=== PATIENT | male | born 1955 | race Caucasian/White ===

== ENCOUNTER → 2020-12-01 | Outpatient (CLI) | payer BC ==
[2020-12-01 12:34] LABS: Basophils % (A) 1 %; Eosinophils # (A) 0.2 k/uL (0-0.7); Eosinophils % (A) 2 %; HGB 16.2 gm/dL (13.0-17.5); Lymphocytes # (A) 2.3 k/uL (1.0-4.8); Lymphocytes % (A) 29 %; MCH 30.3 pg (25.0-35.0); MCHC 33.8 g/dL (31.0-37.0); MCV 89.7 fL (80.0-100.0); Monocytes # (A) 0.6 k/uL (0-1.0); Monocytes % (A) 7 %; Neutrophils # (A) 4.7 k/uL (1.3-7.7); Neutrophils % (A) 59 %; Platelet Count 251 k/uL (150-450); RBC 5.35 m/uL (4.30-5.90); RDW 13.8 % (11.5-15.5); WBC 7.9 k/uL (3.8-10.6)
[2020-12-01 12:45] LABS: Potassium 4.5 mmol/L (3.5-5.1)
[2020-12-01 12:53] LABS: Prothrombin Time 10.4 sec (9.0-12.0)
== END | disposition home or self-care (01) ==
LOC: LABPAT 11:53
PROVIDERS: ATTEND Orthopaedic Surgery
DX: Z01.812 Encounter for preprocedural laboratory examination (principal); M16.11 Unilateral primary osteoarthritis, right hip; Z22.322 Carrier or suspected carrier of Methicillin resistant Staphylococcus aureus
CPT/HCPCS: 36415; 80051; 85025; 85610

== ENCOUNTER → 2020-12-10 | Outpatient (CLI) | payer BC | END | disposition home or self-care (01) | LOC: LABPAT 10:18 | PROVIDERS: ATTEND Orthopaedic Surgery | DX: Z01.812 Encounter for preprocedural laboratory examination (principal); M16.11 Unilateral primary osteoarthritis, right hip; Z22.322 Carrier or suspected carrier of Methicillin resistant Staphylococcus aureus | CPT/HCPCS: 87070 ==

== ENCOUNTER 2020-12-15 06:13 | Day surgery (SDC) | payer BC ==
[2020-12-09 11:58] VITALS: BMI 31.5
--- NOTE | 2020-12-14 11:56 | HP ---
HISTORY AND PHYSICAL CHIEF COMPLAINT: Right hip pain. 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 He is having a difficult time with normal walking. He has been limping. He has tried medications in addition to exercise and weight loss without much relief. PAST MEDICAL HISTORY: Negative. PAST SURGICAL HISTORY: Negative. CURRENT MEDICATIONS: None. He denies drug allergies. FAMILY HISTORY: Significant for cancer and heart disease. SOCIAL HISTORY: Significant for social alcohol use. REVIEW OF SYSTEMS: Sixteen-point review of systems otherwise reviewed and noncontributory. PHYSICAL EXAMINATION: On examination, the patient is approximately 5 foot 10, 230 pounds of endomorphic habitus. HEENT exam is nonfocal. Neck is supple. Passive motion right hip, flexion 80 degrees, external rotation, hip flexed 50 degrees, internal rotation -20 degrees with pain. Clinically, he has 1.5 cm shortening of the right lower extremity compared to the left. His distal neurovascular exam appears intact in the right lower extremity. X-rays of the right hip obtained in the office show severe right hip osteoarthrosis with [id number] changes and lateral subluxation. IMPRESSION: Right hip severe osteoarthrosis. RECOMMENDATIONS: I talked to the patient at length regarding his condition along with treatment options. At this point, he is quite limited because of pain related to his right hip osteoarthrosis despite previous conservative measures. After thorough discussion, he opts to proceed with surgery. We will plan to proceed with right total hip arthroplasty utilizing an anterior approach. Risks and benefits were discussed at length in layman's terms. We will institute DVT prophylaxis postoperatively. MMODL / IJN: [id number] /
[~2020-12-15 06:13] MED LIST: ACETAMINOPHEN TAB 500 MG TAB PO PRN; DEXAMETHASONE SOD PHOSPHATE 4 MG/ML 1 ML VIAL IV ONE; LACTATED RINGERS 1,000 ML IV SCH; MELOXICAM 7.5 MG TAB PO PRN; MIDAZOLAM 2 MG/2 ML VIAL IV PRN; ONDANSETRON 4 MG/2 ML VIAL IVP ONE; TRANEXAMIC ACID 1,000 MG in SODIUM CHLORIDE 0.9% 100 ML IVPB PRN
[2020-12-15] MEDS ORDERED: MIDAZOLAM 2 MG/2 ML VIAL ONE (07:33)
[2020-12-15] MEDS ORDERED: SODIUM CHLORIDE 0.9% 100 ML BAG ONE (07:33)
[2020-12-15] MEDS ORDERED: KETAMINE 10 MG/ML 20 ML VIAL ONE (07:33)
[2020-12-15] MEDS ORDERED: TRANEXAMIC ACID 1,000 MG/10 ML VIAL ONE (07:33)
[2020-12-15] MEDS ORDERED: fentaNYL (PF) 50 MCG/ML 2 ML AMP ONE (07:33)
[2020-12-15] MEDS ORDERED: PROPOFOL 10 MG/ML 20 ML VIAL IV ONE (07:33)
[2020-12-15] MEDS ORDERED: ceFAZolin 1,000 MG in SODIUM CHLORIDE 0.9% 1,000 ML IRRIGATION ONE (08:13)
[2020-12-15] MEDS ORDERED: HYDROcodone/APAP 7.5-325MG 1 EACH TAB PO PRN (09:26)
[2020-12-15] MEDS ORDERED: HYDROcodone/APAP 5-325MG 1 EACH TAB PO PRN (09:26)
[2020-12-15] MEDS ORDERED: NALOXONE 0.4 MG/ML 1 ML VIAL IV PRN (09:26)
--- NOTE | 2020-12-15 09:45 | P.OP ---
Date of Procedure: 12/15/20 Preoperative Diagnosis: Right hip severe osteoarthrosis Postoperative Diagnosis: Same Procedure(s) Performed: Right total hip arthroplastypress-fitanterior approach Implants: Depuy Corail size 12 standard collared press-fit femoral stem, 36+1.5 cobalt chrome femoral head, 56 mm Thornton acetabular shell with neutral polyethylene liner. Anesthesia: spinal Surgeon: Eitan Escamilla Auctioneer Art #1: Tirso Reyes Estimated Blood Loss (ml): 500 Pathology: other (Femoral head) Condition: stable Disposition: PACU Indications for Procedure: The patient's 65-year-old male presents with progressive right hip pain secondary to osteoporosis despite previous conservative measures. A discussion of the risks and benefits of operative intervention was made with patient. He opted to proceed with surgery. Operative risks to include infection, neurovascular injury, development blood clots, fracture, possible leg length is Significant, possible instability need for subsequent procedures was discussed. Informed consent was obtained. Operative Findings: As below Description of Procedure: The patient was brought to the operating room, and after induction of spinal anesthesia was placed supine on the Lisa table. Positioning was checked with fluoroscopy. The right hip was then prepped and draped in a normal fashion. A 12 cm incision was then made starting 2 fingerbreadths distal and 3 finger breaths posterior to the ASIS in line with the proximal femur. The skin was incised sharply. Subcutaneous tissues were divided sharply. Electrocautery was used for hemostasis. The fascia was split in line with skin incision. The interval between the sartorius and tensor fascia bang was then bluntly developed. The posterior fascia was opened with electrocautery. The lateral circumflex vessels were identified and cauterized prior to sectioning. A retractor was placed along the superior femoral neck as well as the anterior acetabular rim. A wide capsulotomy was performed. The neck cut was then made at a 45 angle to the shaft approximately 1 1/2 cm above the level of the lesser trochanter. The head was extracted. Attention was then paid towards preparing the acetabular. Anterior and posterior retractors were placed. The remaining capsular labral tissue sharply debrided clearly defining the acetabular margins. I began reaming with a 51 mm reamer taking care to initially medialize then reaming at 45 of abduction and 20 of anteversion. Sequential reaming is performed up to 55 mm. A trial 56 mm acetabular shell was inserted in the same orientation and was fully seated. There was good rim fit and stability. Positioning was checked with fluoroscopy. The final 56 mm acetabular shell was inserted again at 45 of abduction and 20 of antever sahil. This was fully seated. There was good rim fit and stability. Again fluoroscopy was used to check the adequacy of placement. A neutral polyethylene liner was gently impacted. Care was taken to avoid any soft tissue interposition. Pulsatile lavage was utilized. Attention was then paid towards preparing the proximal femur. The central region was cleared of soft tissue. A canal finder was used to find the femoral canal. Sequential broaching was performed up to size 12 taking care to lateralize proximally. A calcar mill was used to fashion the medial calcar. There was good rotational stability. A standard neck along with a 36+1 mm head was placed. The hip was gently reduced. Fluoroscopy was used to check the adequacy of positioning along with leg lengths. I felt both were good. The hip was gently dislocated. The trial components were removed. The final size 12 collared standard press-fit femoral stem was inserted parallel to the posterior cortex. This was fully seated and there was good rotational stability. A 36 mm +1 head was placed. This was gently impacted. The hip was then gently reduced. Final fluoroscopic view showed adequate placement implant along with religion of leg length. Stability was checked with 80 of external rotation and 60 of extension of the right hip. The wound was irrigated with sterile lavage. The fascia was closed with running 0 Vicryl suture. There was minimal drainage therefore a deep drain was not placed. The second dose of IV TXA was given. The subcutaneous tissues were reapproximated interrupted 2-0 Vicryl sutures. The skin was reapproximated with 3-0 subcuticular strata fix suture. Skin tape and adhesive was applied. A sterile dressing was applied. The patient was then awoken from sedation and transferred to recovery room in good condition. Blood loss was estimated at 500 mL. No complications were incurred. Sponge and needle counts were correct at the end of the case. Tirso ABEBE assisted during the major components is case to include exposure, bone resection, implantation, and closure.
--- NOTE | 2020-12-15 09:47 | FL ---
Fluoroscopy INDICATION: Pain FINDINGS: Fluoroscopy time: 1 minute 13 seconds. Images obtained: 2. IMPRESSIONS: 1. Documentation of fluoroscopy.
[2020-12-15] MEDS: HYDROmorphone 0.5 MG/0.5 ML SYRINGE IVP PRN ×3 (10:49→12:43)
--- NOTE | 2020-12-15 11:20 | XR ---
EXAMINATION TYPE: XR Hip Limited RT DATE OF EXAM: 12/15/2020 COMPARISON: None HISTORY: Post hip replacement TECHNIQUE: AP right hip FINDINGS: There is a prosthesis present. Acetabular component is present. No acute fractures are evid ent. Postsurgical soft tissue changes are noted IMPRESSION: 1. No acute fracture post right hip replacement
[2020-12-15] MEDS ORDERED: SENNOSIDES-DOCUSATE SODIUM 1 EACH TAB PO SCH (21:00)
[2020-12-16 04:40] VITALS: BP 120/66; PULSE 83; RESP 17; TEMP 98.3
[2020-12-16] MEDS ORDERED: ENOXAPARIN 40 MG/0.4 ML SYRINGE SQ SCH (09:00)
[2020-12-16 09:09] LABS: Basophils # (A) 0.03 X 10*3/uL (0.00-0.10); Basophils % (A) 0.2 %; Eosinophils # (A) 0.09 X 10*3/uL (0.04-0.35); Eosinophils % (A) 0.7 %; HCT 41.1 % (39.6-50.0); HGB 13.3 g/dL (13.0-17.0); Lymphocytes # (A) 2.45 X 10*3/uL (0.90-5.00); Lymphocytes % (A) 19.5 %; MCH 28.2 pg (27.0-32.0); MCHC 32.4 g/dL (32.0-37.0); MCV 87.1 fL (80.0-97.0); Mean Platelet Volume 9.8 fL (9.5-12.2); Monocytes # (A) 1.45 X 10*3/uL (0.20-1.00); Monocytes % (A) 11.5 %; Neutrophils # (A) 8.52 X 10*3/uL (1.80-7.70); Neutrophils % (A) 67.8 %; Platelet Count 227 X 10*3/uL (140-440); RBC 4.72 X 10*6/uL (4.40-5.60); RDW 13.3 % (11.5-14.5); WBC 12.58 X 10*3/uL (4.50-10.00)
--- NOTE | 2020-12-16 10:04 | P.DS ---
Providers Date of admission: 12/15/2020 Expected date of discharge: 12/16/20 Attending physician: Eitan Escamilla Consults: 12/15/20 09:26 Consult Physician Routine Consulting Provider: Arslan Levy Consult Reason/Comments: s/p right total knee arthroplasty Do you want consulting provider notified?: Yes Primary care physician: Arslan Levy Hospital Course: Date of admission: 12/15/2020 Date of discharge: 12/16/2020 Admission diagnosis: Right hip osteoarthritis Discharge diagnosis: Same Attending physician: Dr. Escamilla Surgical procedures: Right total hip arthroplasty Brief history: Patient is a 65-year-old male with a history of progressive primary right hip osteoarthritis. At this point patient has failed conservative treatment measures and has opted to proceed with a elective right total hip arthroplasty. Hospital course: Details of patient's surgery can be found in operative report. Patient tolerated the procedure well and was subsequently transported to orthopedic floor. Patient's orthopeidc and medical care was provided daily. Patient had daily laboratory tests performed for evaluation of overall blood counts. Patient had daily physical therapy to include strengthening range of motion as well as education with walker ambulation. Patient was treated with Lovenox for their postoperative DVT prophylaxis during their inpatient stay. Patient was noted to have a relatively uneventful postoperative course. Patient reported satisfactory pain control with oral pain medications by postoperative day 1. Patient showed satisfactory progress with physical therapy. Patient moved steadily through the program and had no difficulty meeting the goals by postoperative day 1. Given patient's otherwise satisfactory course and having met physical therapy goals, plan is to discharge patient home on postoperative day 1. Discharge condition/disposition: Patient will be discharged home in stable condition. Discharge medications: Instructions are given on resumption of patient's normal daily medications per primary care recommendation, in addition patient will be prescribed [place] 7.5 mg/325 mg; Eliquis 2.5 mg BID x 2 weeks; Colace. Discharge instructions: 1. Wound care and infection precautions, keep incision dry and covered while showering, no lotions, creams, moisturizers. No soaking, tubs, pools, hottubs. Do not scrub over the incision. 2. Weight-bear as tolerated with walker / cane until follow-up. 3. Ice and elevate when necessary. Do not exceed 20 minutes per hour with ice pack. 4. Utilize compression sleeve until seen at first follow up appointment. 5. Visiting nursing care. 6. Home physical therapy. 7. Pain meds and anticoagulants per prescription. 8. Pain medication has potential to cause constipation. Increase oral fluid and fiber intake. Contact primary care provider if you have not had a bowel movement within 48 hours after discharge 9. No anti-inflammatory medication until discussed at first post operative visit, this including Motrin, Aleve, Mobic, Diclofenac. 10. Follow up in office at 2 weeks postop with Jay Velarde PA-C / Tirso Reyes PA-C 11. Follow up with your primary care doctor 7-10 days after discharge. 12. Contact [facility] with any questions, . Assessment: Right hip osteoarthritis Procedures: Right total hip arthroplasty Patient Condition at Discharge: Good Plan - Discharge Summary Discharge Rx Participant: Yes New Discharge Prescriptions: New Docusate [Colace] 100 mg PO DAILY #30 cap Apixaban [Eliquis] 2.5 mg PO BID #60 tab HYDROcodone/APAP 7.5-325MG [[place] 7.5] 1 each PO Q6HR PRN #24 tab PRN Reason: Pain No Action Tafluprost/Pf [Zioptan 0.0015% Eye Drops] 1 drop BOTH EYES HS Timolol 0.5% Ophth Soln (Pf) [Timoptic 0.5% Ocudose] 1 drops BOTH EYES DAILY Discharge Medication List Tafluprost/Pf [Zioptan 0.0015% Eye Drops] 1 drop BOTH EYES HS 12/09/20 [History] Timolol 0.5% Ophth Soln (Pf) [Timoptic 0.5% Ocudose] 1 drops BOTH EYES DAILY 12/09/20 [History] Apixaban [Eliquis] 2.5 mg PO BID #60 tab 12/16/20 [Rx] Docusate [Colace] 100 mg PO DAILY #30 cap 12/16/20 [Rx] HYDROcodone/APAP 7.5-325MG [[place] 7.5] 1 each PO Q6HR PRN #24 tab 12/16/20 [Rx] Follow up Appointment(s)/Referral(s): Tirso Reyes, CLAY [PHYSICIAN WIRE WEAVER] - 2 Weeks Activity/Diet/Wound Care/Special Instructions: Orthopedic Discharge Instructions: 1. Wound care and infection precautions, keep incision dry and covered while showering, no lotions, creams, moisturizers. No soaking, pools, hot tubs. Do not scrub over incision. 2. Weight-bear as tolerated with walker / cane until follow-up. 3. Ice and elevate when necessary. Do not exceed 20 minutes per hour with ice pack. 4. Utilize compression sleeve until seen at first follow up appointment. 5. Pain meds and anticoagulants per prescription. 6. Pain medication has potential to cause constipation. Increase oral fluid and fiber intake. Contact primary care provider if you have not had a bowel movement within 48 hours after discharge. 7. No anti-inflammatory medication until discussed at first post operative visit, this including Motrin, Aleve, Mobic, Diclofenac. 8. Follow up in office at 2 weeks postop with Jay Velarde PA-C / Tirso Reyes PA-C 9. Follow up with your primary care doctor 7-10 days after discharge. 10. Contact [facility] with any questions, . Keep mesh tape on for first 5 days. While showering with mesh tape, cover mesh tape with Saran wrap. Mesh tape knee removed in 5 days Discharge Disposition: HOME WITH HOME HEALTH SERVICES
--- NOTE | 2020-12-16 10:08 | P.PN ---
Subjective Progress Note Date: 12/16/20 Principal diagnosis: Right hip osteoarthritis Patient seen at bedside this morning. Patient was sitting in recliner chair with legs elevated. Patient says he is feeling well this morning in minimal pain. Patient says he did work with physical therapy this morning which went we ll. Patient says he is ready to go home. Patient denies chest pain, fever, shortness breath, nausea, vomiting, change in vision, loss of bowel/bladder control. Objective - Vital Signs Vital signs: Vital Signs Temp 98.3 F 12/16/20 02:00 Pulse 83 12/16/20 07:10 Resp 17 12/16/20 07:10 BP 120/66 12/16/20 02:00 Pulse Ox 95 12/16/20 02:00 Intake & Output 12/15/20 12/16/20 12/16/20 18:59 06:59 18:59 Intake Total 1141 300 300 Output Total 500 1600 Balance 641 -1300 300 Weight 104.1 kg Intake: IV 601 Oral 540 300 300 Output: Urine 1600 Estimated Blood Loss 500 Other: # Voids 1 2 - Exam Right hip: Incision is clean, dry, and intact. The exofin fusion tape is in good condition. There is minimal soft tissue swelling and ecchymosis surrounding the medial and lateral aspects of the incision. Calf is soft, no tenderness with palpation. Plantar flexion, dorsiflexion, EHL, FHL are intact. Sensory exam to light touch throughout the extremity is intact, dorsal pedis pulses 2+. - Labs CBC & Chem 7: 12/16/20 06:12 Labs: Abnormal Lab Results - Last 24 Hours (Table) 12/16/20 Range/Units 06:12 WBC 12.58 H (4.50-10.00) X 10*3/uL Neutrophils # 8.52 H (1.80-7.70) X 10*3/uL Monocytes # 1.45 H (0.20-1.00) X 10*3/uL Assessment and Plan Assessment: Right hip osteoarthritis Plan: 1. Right hip osteoarthritis - right total hip arthroplasty performed yesterday, 12/15/2020. Patient stable this morning plan for discharge home today 2. Appreciate medical management 3. Pain management - stable at this time. Going home with [place] 7.5 mg/325 mg. 4. DVT prophylaxis/GI prophylaxis - Lovenox in hospital. Going home with Eliquis 2.5 mg BID. Senna in hospital. Going home with Colace 5. Encourage incentive spirometer use 6. PT/OT- weightbearing as tolerated with walker for assistance 7. Discharge planning - plan for discharge home today Time with Patient: Less than 30
--- NOTE | 2020-12-16 15:15 | P.CONS ---
History of Present Illness - Reason for Consult Consult date: 12/16/20 medical managment Requesting physician: Eitan Escamilla - Chief Complaint Right hip arthroplasty - History of Present Illness This is a 65-year-old male patient who presented for an elective right hip arthroplasty with Dr. Nunes on 12/15/2020. Patient has medical history of skin cancer, glaucoma and osteoarthritis. Reports that he had progressive right hip pain for several years making ambulation difficult without any improvement with conservative management. Past Medical History Past Medical History: Cancer, Eye Disorder Additional Past Medical History / Comment(s): alexis glaucoma. skin cancer foreh ead and lip since removed History of Any Multi-Drug Resistant Organisms: None Reported Additional Past Surgical History / Comment(s): skin cancer removal, colonoscopy. alexis cataract removal with lens implant Past Anesthesia/Blood Transfusion Reactions: No Reported Reaction Past Psychological History: No Psychological Hx Reported Smoking Status: Never smoker Past Alcohol Use History: Occasional Past Drug Use History: None Reported - Past Family History Mother Family Medical History: Congestive Heart Failure (CHF), CVA/TIA, Diabetes Mellitus Father Family Medical History: Cancer, Congestive Heart Failure (CHF), CVA/TIA, Diabetes Mellitus Additional Family Medical History / Comment(s): colon cancer Brother(s) Family Medical History: Cancer Additional Family Medical History / Comment(s): colon cancer Medications and Allergies Home Medications Medication Instructions Recorded Confirmed Type Tafluprost/Pf [Zioptan 0.0015% Eye 1 drop BOTH EYES HS 12/09/20 12/15/20 History Drops] Timolol 0.5% Ophth Soln (Pf) 1 drops BOTH EYES DAILY 12/09/20 12/15/20 History [Timoptic 0.5% Ocudose] Apixaban [Eliquis] 2.5 mg PO BID #60 tab 12/16/20 Rx Docusate [Colace] 100 mg PO DAILY #30 cap 12/16/20 Rx HYDROcodone/APAP 7.5-325MG [[place] 1 each PO Q6HR PRN #24 tab 12/16/20 Rx 7.5] Allergies Allergy/AdvReac Type Severity Reaction Status Date / Time No Known Allergies Allergy Verified 12/15/20 06:45 Physical Exam Vitals: Vital Signs Temp Pulse Resp BP Pulse Ox 12/16/20 07:10 83 17 12/16/20 02:00 98.3 F 83 17 120/66 95 12/15/20 20:00 86 16 119/70 91 L 12/15/20 14:00 80 18 165/74 94 L 12/15/20 12:47 68 16 136/86 94 L 12/15/20 12:30 64 16 130/72 94 L 12/15/20 12:00 60 16 132/73 93 L Intake and Output 12/15/20 12/16/20 12/16/20 22:59 06:59 14:59 Intake Total 540 300 300 Output Total 1600 Balance 540 -1300 300 Intake: Oral 540 300 300 Output: Urine 1600 Other: # Voids 1 2 In general patient is alert and oriented x 3 in no distress HEENT head normocephalic and atraumatic Neck is supple no JVD no goiter no lymphadenopathy no carotid bruit Chest examination is clear to auscultation no crackles no wheezing Cardiac exam reveals regular heart sounds S1 and S2 no gallops no murmurs Abdomen is soft nontender no organomegaly with normal bowel sounds Extremity exam reveals no edema no cyanosis or clubbing Neurological examination reveals no gross focal deficits Results CBC & Chem 7: 12/16/20 06:12 Labs: Abnormal Lab Results - Last 24 Hours (Table) 12/16/20 Range/Units 06:12 WBC 12.58 H (4.50-10.00) X 10*3/uL Neutrophils # 8.52 H (1.80-7.70) X 10*3/uL Monocytes # 1.45 H (0.20-1.00) X 10*3/uL Assessment and Plan Plan: status post right hip arthroplasty patient is doing well post op he is able to ambulate and climb steps He is scheduled to be discharged to home today There is no medical contraindication for discharge Will follow in the office in the next 3-4 days
== END 2020-12-16 13:03 | disposition home health service (06) ==
LOC: OR 06:13 → 4SSUR 13:14 → OR 12-16 13:03
PROVIDERS: ATTEND Orthopaedic Surgery
DX: M16.11 Unilateral primary osteoarthritis, right hip (principal); Z87.891 Personal history of nicotine dependence; H40.9 Unspecified glaucoma; Z79.899 Other long term (current) drug therapy
CPT/HCPCS: 97161; 86900; 86901; 85025; 86850; 88300; 73501; 27130; C1776; J1100; J0690 ×2; J2405; J1650; J1170

== ENCOUNTER 2024-10-31 08:32 | Day surgery (SDC) | payer MEDICARE, OTHER ==
[2024-10-31 08:58] VITALS: TEMP 97.6
[2024-10-31] MEDS: IV FLUID CONTINUATION 1,000 ML IV ONE ×2 (09:05→10:06)
[2024-10-31] MEDS: LACTATED RINGERS 1,000 ML IV SCH (09:05)
[2024-10-31] MEDS ORDERED: PROPOFOL 10 MG/ML 20 ML VIAL IV ONE (10:08)
[2024-10-31] MEDS ORDERED: LIDOCAINE 1% INJ 10MG/ML (20 ML MDV) ONE (10:08)
--- NOTE | 2024-10-31 10:25 | P.PCN ---
Date of Procedure: 10/31/24 Preoperative Diagnosis: Screening Family history colon cancer Postoperative Diagnosis: Diverticulosis Procedure(s) Performed: Colonoscopy Anesthesia: MAC Surgeon: Aleida Conroy Pathology: none sent Condition: stable Disposition: same day Indications for Procedure: 69-year-old male with family history of colon cancer with father and brother. Presents today for screening colonoscopy. He does have history of colon polyp in the past. Denies any blood in his stool. Risks, benefits and alternatives p rovided to the patient including risk of bleeding. Patient has provided consent prior to attending the endoscopy suite. Operative Findings: Diverticulosis Description of Procedure: The patient was brought to the endoscopy suite and placed in left lateral decubitus position and adequate sedation was achieved using conscious sedation. Digital rectal exam was performed and mild internal hemorrhoids were palpated. An endoscope was then placed in the rectum and advanced to the cecum as identified by landmarks including the appendiceal orifice and the ileocecal valve. The prep was good. The colonoscope was then slowly withdrawn, examining for any mucosal abnormalities. The cecum, ascending, transverse, descending and sigmoid colon were visualized adequately. There were no large neoplastic lesions noted throughout the colon. No obvious polyps noted throughout the colon. Diverticuli were noted within the sigmoid colon. No active bleeding. Hemostasis was maintained. Retroflexion was performed in the rectum and internal hemorrhoids. Excess air was removed, the colonoscope withdrawn and the procedure terminated. The patient was then transferred to the recovery unit in stable condition. Repeat colonoscopy should be performed in 5 years.
[2024-10-31 10:54] VITALS: BP 123/78; PULSE 73; RESP 18
== END 2024-10-31 11:36 | disposition home or self-care (01) ==
LOC: ORWHC2ENDO 08:32
PROVIDERS: ATTEND Surgery
DX: Z12.11 Encounter for screening for malignant neoplasm of colon (principal); K57.30 Diverticulosis of large intestine without perforation or abscess without bleeding; K64.8 Other hemorrhoids; I10 Essential (primary) hypertension; Z79.899 Other long term (current) drug therapy; Z86.0100 Personal history of colon polyps, unspecified; Z80.0 Family history of malignant neoplasm of digestive organs
CPT/HCPCS: J2003; J2704; G0105